=== PATIENT | female | born 1970 | race Caucasian/White ===

== ENCOUNTER → 2022-12-06 10:05 | Outpatient (BNVA) | payer OTHER, SELFPAY | PROVIDERS: Visit Provider Physician Assistant Medical | DX: S90.31XA Contusion of right foot, initial encounter (principal); W18.09XA Striking against other object with subsequent fall, initial encounter | CPT/HCPCS: 99202 ==

== ENCOUNTER → 2022-12-09 13:26 | Outpatient (BNVA) | payer OTHER, SELFPAY | PROVIDERS: Visit Provider Internal Medicine | DX: S90.31XA Contusion of right foot, initial encounter (principal); W18.09XA Striking against other object with subsequent fall, initial encounter | CPT/HCPCS: 99213 ==

== ENCOUNTER 2024-07-10 08:00 | Outpatient (RCR) | payer OTHER, SELFPAY ==
--- NOTE | 2024-08-14 11:38 | MHC.PT.DC ---
[facility] [place] Office [place] Office [place] Office [address] Mohini Whitaker [address] [phone] F: [phone] F: [phone] F: [phone] F: [phone] Physical Therapy Discharge Report Diagnosis: Positional Vertigo Date of Surgery: Date of Evaluation: 06/20/24 Date of Discharge: 07/15/24 Treatments to Date: 3 Cancellations to Date: 1 No Shows to Date: 0 Discharge Status: Improved Function Independent with HEP Recommend MD Follow-up Discharge Summary: Parvin arrived stating she is feeling better. She was dizzy with rolling in bed a few days back and therefore called to schedule an appointment. However her symptoms resolved by itself and she arrived with no symptoms today. I assessed her for BPPV in B Cm pikes and B roll test. She was negative for nystagmus and vertigo. I then assessed her balance. She presented with good static and dynamic balance. No impaired balance noted. At this time she did not present with any symptoms suggestive of vestibular dysfunction. No therapy indicated. She was advised to return to PT in case of return of symptoms. Electronically signed by: TERELL TOM PT DPT Please sign and return to therapist. Thank you for your referral.
== END 2024-08-14 11:38 | disposition home or self-care (01) ==
LOC: HO.PT 08:00
PROVIDERS: PCP Internal Medicine; Visit Provider Otolaryngology
DX: H81.10 Benign paroxysmal vertigo, unspecified ear (principal)
CPT/HCPCS: 95992; 97112; 97161; 97535

== ENCOUNTER 2025-05-08 10:30 | Outpatient (RCR) | payer OTHER, SELFPAY ==
[2025-05-02 08:09] VITALS: BP 114/51; PULSE 97
--- NOTE | 2025-05-02 08:51 | MHC.PT.EP ---
[facility] [place] Office [place] Office [place] Office [address] Mohini Whitaker [address] [phone] F: [phone] F: [phone] F: [phone] F: [phone] Physical Therapy Plan of Care Date of Evaluation: 05/02/25 Date of Surgery: NA Diagnosis: Vestibular rehab Assessment: Parvin is a 55 year old female who is referred to PT for vestibular rehab . She reports of having sudden onset of dizziness about 1 month back. She describes her symptoms as room spinning and is present with getting into bed, rolling in bed, looking up and down. She denies having any nausea or vomiting. On PT examination she presented with intact saccades, smooth pursuit, intact visual tracking, negative head thrust and positive for L PC BPPV. She lives with her family and is independent with all ADLS but her family is always around her to assist her as needed. 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 She would benefit from skilled PT to address the aforementioned impairments and improve tolerance to functional activities. Frequency and Duration: The patient will be seen 2/week for 4 weeks Short Term Goals: Manager File Goals: Patient to be educated on symptoms and indications to return to therapy when needed min 4 weeks. Pt will be negative for nystagmus or reports of vertigo in all diagnostic positions bilaterally to resolution of BPPV in 4 weeks. Patient to be able to functionally move in all planes and directions without provocation of dizziness to show return to PLOF in 4 weeks. Treatment Plan: Modalities to reduce pain, spasms and effusion. Manual therapy to restore motion and function. Therapeutic exercise to improve strength and flexibility. Neuromuscular re-education for posture and balance. Therapeutic activities to return to functional activities of daily living. Electronically signed by: Ngozi Rivera PT DPT Please sign and return to therapist. Thank you for your referral.
--- NOTE | 2025-06-19 14:16 | MHC.PT.DC ---
[facility] [place] Office [place] Office [place] Office [address] Mohini Whitaker [address] [phone] F: [phone] F: [phone] F: [phone] F: [phone] Physical Therapy Discharge Report Diagnosis: Vestibular rehab Date of Surgery: NA Date of Evaluation: 05/02/25 Date of Discharge: 06/19/25 Treatments to Date: 2 Cancellations to Date: 0 No Shows to Date: 0 Discharge Status: Achieved Goals Discharge Summary: Parvin has had no symptoms of BPPV in the last 1 month. She is therefore being d/c from PT. Electronically signed by: Ngozi Rivera PT DPT Please sign and return to therapist. Thank you for your referral.
== END 2025-06-19 14:16 | disposition home or self-care (01) ==
LOC: HO.PT 10:30
PROVIDERS: PCP Registered Nurse; Visit Provider Otolaryngology
DX: H81.90 Unspecified disorder of vestibular function, unspecified ear (principal)
CPT/HCPCS: 95992; 97112; 97161